=== PATIENT | female | born 1940 ===

== ENCOUNTER → 2022-04-03 13:54 | Outpatient (BNVA) | payer MEDICARE, OTHER, SELFPAY | PROVIDERS: PCP Internal Medicine; Visit Provider Psychiatry & Neurology Neurology | DX: F03.90 Unspecified dementia, unspecified severity, without behavioral disturbance, psychotic disturbance, mood disturbance, and anxiety (principal) | CPT/HCPCS: 99202 ==

== ENCOUNTER → 2022-09-06 10:28 | Outpatient (BNVA) | payer MEDICARE, OTHER, SELFPAY | PROVIDERS: PCP Family Medicine; Visit Provider Psychiatry & Neurology Neurology | DX: F03.90 Unspecified dementia, unspecified severity, without behavioral disturbance, psychotic disturbance, mood disturbance, and anxiety (principal) | CPT/HCPCS: 99212 ==

== ENCOUNTER 2023-03-11 08:55 | Outpatient (AMB) | payer MEDICARE, OTHER, SELFPAY ==
--- NOTE | 2023-03-11 08:58 | MHC.OFFVIS ---
Intake Vital Signs 03/11/23 09:01 Weight 180 lb BP 112/62 Blood Pressure Location Lt brachial Position Sitting Pulse 70 Pulse Source Pulse Oximeter Pulse Oximetry (%) 98 Oxygen Delivery Method Room Air Intake Visit Reasons: 6m follow up - LVM Intake Note: F/U [employer] Required: No Allergies No Known Allergies Allergy (Verified 03/11/23 08:58) HPI HPI Comments History of Present Illness Details 82 y/o female comes for follow up of dementia. She is accompanied by her daughter. Pt is on donepezil 15 mg qd and memantine 10 mg BID. Pt is tolerated the medications. Per patient' daughter patient's memory and cognitive function slowly worsened. She gets confused with her brother and son. She watches same movie twice a day, because she can't remember. No wondering, no behavior or sleep difficulties. She still picks her skin. She stopped driving, and needs assistance for bathing. She does not use CPAP regularly. [facility] Medical History Anxiety Hyperlipidemia HTN (hypertension) GERD (gastroesophageal reflux disease) Depression Hx of aneurysm FH: cholecystectomy Surgical History Hx of cholecystectomy H/O total knee replacement H/O: hysterectomy H/O colonoscopy Family History Mother HTN (hypertension) Pancreatic cancer Father HTN (hypertension) Diabetes Social History Alcohol intake: current Patient Tobacco Use Status: Never used Tobacco Review of Systems Const All systems reviewed & are unremarkable except as noted in HPI and below Physical Exam Vital Signs: Last Vital Signs Pulse 70 03/11/23 09:01 BP 112/62 03/11/23 09:01 Pulse Ox 98 03/11/23 09:01 Oxygen Delivery Method Room Air 03/11/23 09:01 Const General: cooperative, healthy appearing, comfortable and no acute distress Orientation/consciousness: oriented to person and oriented to place Neck Neck: Yes no meningeal signs Neuro Other: Disoriented to time General: oriented to person, oriented to place, tone normal, moves all extremities, no meningeal signs and no focal motor deficits Cranial nerves: Yes Nystagmus not present, Yes Normal facial strength present, Yes Midline tongue present, No Symmetric palate elevation present and Yes Ability to bilaterally elevate shoulders present Cognition (Neuro): abnormal cognition Gait exam (Neuro): Normal gait present Motor exam (neuro): 5/5 motor strength present throughout Deep tendon reflexes (DTR's): Right triceps reflex intensity grade: 1+, Left triceps reflex intensity grade: 1+, Rt Biceps (C5, C6): 1+, Left biceps reflex intensity grade: 1+, Right brachioradialis reflex intensity grade: 1+, Left brachioradialis reflex intensity grade: 1+, Right patellar reflex intensity grade: 1+ and Left patellar reflex intensity grade: 1+ Coordination: [id number] test normal Psych Affect: Sad affect present Assessment & Plan Assessment & Plan (1) Dementia: Comment: transient delirium due to UTI , fracture etc Code(s): F03.90 - Unspecified dementia, unspecified severity, without behavioral disturbance, psychotic disturbance, mood disturbance, and anxiety Plan Advised patient to increase Donepezil 23 mg q daily and continue namenda 10mg bid. Continue cognitive exercises. Encouraged patient to do daily physical exercises, 30 min walking daily. Medications: New donepezil 23 mg PO BEDTIME 90 tabs 1RF 90 days Discontinued donepezil Discontinued Reason: Doctor's Order 1 1 /2 tabs qhs orally bedtime; 90 days 135 tabs 5RF Coding Level of Care Code Est Pt Level 3 (75132) Diagnoses Dementia F03.90
[2023-03-11 09:01] VITALS: BP 112/62; PULSE 70; O2SAT 98
== END 2023-03-11 09:35 | disposition home or self-care (01) ==
PROVIDERS: Visit Provider Nurse Practitioner Family
DX: F03.90 Unspecified dementia, unspecified severity, without behavioral disturbance, psychotic disturbance, mood disturbance, and anxiety (principal)
CPT/HCPCS: 99213

== ENCOUNTER → 2023-03-11 08:55 | Outpatient (BNVA) | payer MEDICARE, OTHER, SELFPAY | PROVIDERS: Visit Provider Nurse Practitioner Family | DX: F03.90 Unspecified dementia, unspecified severity, without behavioral disturbance, psychotic disturbance, mood disturbance, and anxiety (principal) | CPT/HCPCS: 99212 ==

== ENCOUNTER 2023-09-09 09:17 | Outpatient (AMB) | payer MEDICARE, OTHER, SELFPAY ==
--- NOTE | 2023-09-09 09:20 | A.OFFVIS_ITS ---
Intake Vital Signs 09/09/23 09:29 Height 5 ft 6 in Weight 185 lb 2 oz BMI 29.9 BP 112/62 Blood Pressure Location Lt brachial Position Sitting Pulse 61 Pulse Source Pulse Oximeter Pulse Oximetry (%) 98 Oxygen Delivery Method Room Air Intake Visit Reasons: 6m f/u - CONF w/address Intake Note: Patient presents for 6 months f/u. More confusion and memory loss. Forgetting words and more incontinence during the night. Allergies Zpack Allergy (Mild, Uncoded 09/09/23 09:28) Rash HPI HPI Comments History of Present Illness Details 83 y/o female comes for follow up of pack. She is accompanied by her daughter and son. She was on donepezil 10 mg and memantine 10 mg BID. She tried donepezil 15 mg, but it caused her having diarrhea and she did not tolerated. Per patient' daughter patient's memory and cognitive function slowly worsened. She was confused the place, her son lived in [place] in the past, she never visit him in [place] but she thought she visited, etc. She watches same movie twice a day, because she can't remember. No wondering, no behavior. She does not sleep well, wakes up several times to go to bathroom. Pt has PATSY, but reports she stopped using CPAP. She stopped driving, and needs assistance for bathing. Home health aids comes her house to help her four times a week. She lives with her son. She tried senior center, but she was not appropriate to go senior center. [facility] Medical History Anxiety Hyperlipidemia HTN (hypertension) GERD (gastroesophageal reflux disease) Depression Hx of aneurysm FH: cholecystectomy Surgical History Hx of cholecystectomy H/O total knee replacement H/O: hysterectomy H/O colonoscopy Family History Mother HTN (hypertension) Pancreatic cancer Father HTN (hypertension) Diabetes Social History Alcohol intake: current Patient Tobacco Use Status: Never used Tobacco Physical Exam Vital Signs: Last Vital Signs Pulse 61 09/09/23 09:29 BP 112/62 09/09/23 09:29 Pulse Ox 98 09/09/23 09:29 Oxygen Delivery Method Room Air 09/09/23 09:29 BMI result Body Mass Index 29.9 Const General: cooperative, healthy appearing, comfortable and no acute distress Orientation/consciousness: oriented to person and oriented to place Neck Neck: Yes no meningeal signs Neuro Other: Disoriented to time General: oriented to person, oriented to place, tone normal, moves all extremities, no meningeal signs and no focal motor deficits Cranial nerves: Yes Nystagmus not present, Yes Normal facial strength present, Yes Midline tongue present, No Symmetric palate elevation present and Yes Ability to bilaterally elevate shoulders present Cognition (Neuro): abnormal cognition Gait exam (Neuro): Normal gait present Motor exam (neuro): 5/5 motor strength present throughout Deep tendon reflexes (DTR's): Right triceps reflex intensity grade: 1+, Left triceps reflex intensity grade: 1+, Rt Biceps (C5, C6): 1+, Left biceps reflex intensity grade: 1+, Right brachioradialis reflex intensity grade: 1+, Left brachioradialis reflex intensity grade: 1+, Right patellar reflex intensity grade: 1+ and Left patellar reflex intensity grade: 1+ Coordination: [id number] test normal Psych Affect: Sad affect present Assessment & Plan Assessment & Plan (1) Dementia: Code(s): F03.90 - Unspecified dementia, unspecified severity, without behavioral d isturbance, psychotic disturbance, mood disturbance, and anxiety (2) PATSY (obstructive sleep apnea): Code(s): G47.33 - Obstructive sleep apnea (adult) (pediatric) Plan Continue to take Donepezil 10 mg q daily and continue namenda 10mg bid. Continue cognitive and physical activities. Advised patient to restart using CPAP to treat PATSY and it can improve the cognitive functions. Medications: Changed From donepezil 15 mg (1.5 x 10 mg) PO BEDTIME 90 days 135 tabs 0RF To donepezil 10 mg PO BEDTIME 90 days 90 tabs 1RF Coding Level of Care Code Est Pt Level 3 (50779) Diagnoses Dementia F03.90 PATSY (obstructive sleep apnea) G47.33
[2023-09-09 09:29] VITALS: BP 112/62; PULSE 61; O2SAT 98; BMI 29.9
== END 2023-09-09 09:51 | disposition home or self-care (01) ==
PROVIDERS: PCP Family Medicine; Visit Provider Nurse Practitioner Family
DX: F03.90 Unspecified dementia, unspecified severity, without behavioral disturbance, psychotic disturbance, mood disturbance, and anxiety (principal); G47.33 Obstructive sleep apnea (adult) (pediatric)
CPT/HCPCS: 99213

== ENCOUNTER → 2023-09-09 09:17 | Outpatient (BNVA) | payer MEDICARE, OTHER, SELFPAY | PROVIDERS: PCP Family Medicine; Visit Provider Nurse Practitioner Family | DX: F03.90 Unspecified dementia, unspecified severity, without behavioral disturbance, psychotic disturbance, mood disturbance, and anxiety (principal); G47.33 Obstructive sleep apnea (adult) (pediatric) | CPT/HCPCS: 99212 ==